=== PATIENT | male | born 1990 | race Caucasian/White ===

== ENCOUNTER 2025-01-02 18:26 | Emergency (ER) | payer BC ==
[~2025-01-02] VITALS: Ht 177.8 cm; Wt 86.0 kg
[2025-01-02] MEDS ORDERED: DEXTROAMP-AMPHE30 MG PO (18:38)
[2025-01-02] MEDS ORDERED: methylPREDNISolone SOD SUCC 125 MG/2 ML VIAL IV ONE (18:45)
[2025-01-02] MEDS ORDERED: FAMOTIDINE 20 MG/ 2 ML VIAL IV ONE (18:45)
[2025-01-02] MEDS ORDERED: diphenhydrAMINE HCL 50 MG/ML VIAL IV ONE (18:45)
[2025-01-02] MEDS ORDERED: EPIPEN AUTO INJECTOR 0.3 MG/0.3 ML ML IM ONE (18:45)
[2025-01-02] MEDS ORDERED: EPIPEN 2-P0.3 MG/0.3 IM (21:40)
[2025-01-02 21:50] VITALS: BP 120/81
== END 2025-01-02 21:50 | disposition home or self-care (01) ==
LOC: ED 18:26
DX: T63.441A Toxic effect of venom of bees, accidental (unintentional), initial encounter (principal); T78.2XXA Anaphylactic shock, unspecified, initial encounter; Z88.0 Allergy status to penicillin; Z88.2 Allergy status to sulfonamides; Z79.899 Other long term (current) drug therapy
CPT/HCPCS: 96374; 96375; 99284-25; J0171; J1200; J2919